=== PATIENT | female | born 1950 | race Caucasian/White ===

== ENCOUNTER 2023-06-25 13:59 | Outpatient (CLI) | payer MEDICARE, BC, SELFPAY ==
[2023-06-25 18:07] LABS: Basophils Percent Auto 0.7 % (0.2-1.2); Eosinophils Absolute Auto 0.1 K/mm3 (0-0.3); Eosinophils Percent Auto 1.6 % (0-4.4); Hematocrit 46.6 % (37.0-47.0); Hemoglobin 14.8 g/dL (12.0-15.0); Immature Granulocyte Absolute 0.02 K/mm3 (0.00-0.031); Immature Granulocyte Percent A 0.4 % (0-0.5); Lymphocytes Absolute Auto 1.19 K/mm3 (0.9-3.2); Lymphocytes Percent Auto 20.8 % (18.3-44.2); Mean Corpuscular HGB Conc 31.8 g/dl (32-36); Mean Corpuscular Hemoglobin 28.2 pg (26-34); Mean Corpuscular Volume 88.8 fl (80-100); Mean Platelet Volume 11.1 fl (7.4-10.4); Monocytes Absolute Auto 0.5 K/mm3 (0.1-0.6); Monocytes Percent Auto 8.4 % (2.6-8.5); Neutrophils Absolute Auto 3.9 K/mm3 (1.3-6.7); Neutrophils Percent Auto 68.1 % (45.5-73.1); Platelet Count Result 238 k/mm3 (150-375); Red Blood Count 5.25 M/mm3 (4.2-5.4); Red Cell Distribution Width 14.6 % (11.5-14.5); White Blood Count 5.7 K/mm3 (4.5-10.0)
[2023-06-25 18:29] LABS: Alanine Aminotransferase 21 U/L (6-35); Albumin Level 4.7 g/dL (3.5-5.1); Alkaline Phosphatase 76 U/L (38-126); Anion Gap 9 mmol/L (8-16); Aspartate Amino Transferase 30 U/L (14-36); Bilirubin,Total 0.7 mg/dL (0.2-1.3); Blood Urea Nitrogen 15 mg/dL (7-17); Calcium 9.3 mg/dL (8.4-10.2); Carbon Dioxide 26 mmol/L (22-30); Chloride 103 mmol/L (98-107); Cholesterol 323 mg/dL (0-200); Estimated Glomerular Filt Rate > 60; Glucose 89 mg/dL (65-110); HDL Direct 63 mg/dL; Potassium 4.6 mmol/L (3.4-5.0); Sodium 138 mmol/L (137-145); Triglycerides 180 mg/dL (<150)
[2023-06-25 18:33] LABS: LDL Cholesterol Direct 173 mg/dL
[2023-06-25 18:59] LABS: Vitamin D 25 Hydroxy 34.3 ng/mL
[2023-06-28 15:04] LABS: Mumps Virus IgG Antibody >300.00 AU/mL
[2023-06-28 18:29] LABS: Rubeola Measles IgG >300.00 AU/mL
[2023-07-13 15:46] LABS: Rubella IgG Antibody 30.2 IU/ML
== END 2023-06-25 14:00 | disposition home or self-care (01) ==
LOC: ANHGOSHLAB 14:11
PROVIDERS: PCP Family Medicine; Visit Provider Family Medicine
DX: Z00.00 Encounter for general adult medical examination without abnormal findings (principal); E66.9 Obesity, unspecified; Z68.33 Body mass index [BMI] 33.0-33.9, adult; E78.5 Hyperlipidemia, unspecified; Z78.9 Other specified health status; Z13.29 Encounter for screening for other suspected endocrine disorder; E53.8 Deficiency of other specified B group vitamins; E55.9 Vitamin D deficiency, unspecified
CPT/HCPCS: 36415; 80053; 80061; 82306; 82607; 84443; 85025; 86735; 86765

== ENCOUNTER 2023-11-26 16:31 | Emergency (ER) | payer MEDICARE, BC, SELFPAY ==
--- NOTE | ~2023-11-26 | XR_ITS ---
EXAMINATION: XR scapula RT DATE: 11/26/2023 17:51 INDICATION: Right scapular pain. Fall. TECHNIQUE: 3 views of right scapula were obtained. COMPARISON: None. FINDINGS: Bone alignment is normal. There is a comminuted fracture of the inferior angle of the scapu la. 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 Glenohumeral joint is not well profiled. IMPRESSION: 1. Comminuted fracture of the inferior angle of the scapula. Reviewed, dictated and finalized at location E. SPECIALIST
[2023-11-26 16:40] VITALS: BP 147/72; PULSE 71; RESP 20; TEMP 36.8; O2SAT 97
--- NOTE | 2023-11-26 17:21 | ED.UPPEXIN ---
HPI - Extremity Injury (Upper) General Chief Complaint: Extremity Injury, Upper Stated Complaint: glf Time Seen by Provider: 11/26/23 17:21 Source: patient Mode of arrival: ambulatory Limitations: no limitations History of Present Illness HPI narrative: MSE: 1720 Martha is a 73-year-old female patient presenting to the ER today for right shoulder pain after a ground level fall. She reports she is having right scapula pain. Is wearing a sling from home. Reports pain to the scapula with movement of the right arm. States when her arm is still she has no pain however when she moves her arm it is excruciating Related Data Allergies Allergy/AdvReac Type Severity Reaction Status Date / Time No Known Allergies Allergy Verified 06/26/23 10:55 Review of Systems Review of Systems: Pertinent positives per HPI. Patient denies any fever, chills, rash, headache, visual changes, dizziness, cough, runny nose, sore throat, shortness of breath, chest pain, palpitations, nausea, vomiting, diarrhea, constipation, abdominal pain, or any urinary issues. [facility] Past Medical History Medical History Anemia Dyslipidemia Obesity Screening mammogram, encounter for Seasonal allergies Surgical History Surgical History History of partial hysterectomy (~1988) Hx of tonsillectomy (~1954) Family History Family History Other Family history of coronary artery disease Social History Social History Smoking status: Never smoker Alcohol intake: never Substance use: never Substance use type: does not use Lack of Transportation: No Lack of Food: Never True Current Housing: I Have Housing Concerned About Future Housing: No Difficulty Paying Gas/Electric Bills: No Difficulty Paying for Meds: No Currently Unemployed: No Education: Master's Degree or Higher Difficulty w/ Childcare or Family Care: No Living arrangements: with family Additional living arrangements comments: Living with Occupation/Education: retired Gender identity (if verbalized by the patient): Female Sexual Orientation (if Verbalized by the Patient): Straight or Heterosexual Spiritual care concerns: No Agree to blood products: Yes Comments At the time of my signature, I reviewed and agree with the nursing past medical, surgical, social, and family history. There is no relevant family history pertinent to the patient complaint. Exam Narrative: General: Well-developed, well nourished, in no apparent distress Head: Normocephalic, atraumatic. Cardio: Regular rate and rhythm, s1 and s2 normal, no murmur appreciated. Resp: Clear to auscultation bilaterally, no rhonchi, rales, wheezing or rubs. Musculoskeletal: No deformity, tender to palpation over the right scapula/trapezius musculature, limited range of motion due to pain, muscle strength strong and equal, peripheral pulse strong, no edema, no cyanosis, normal gait and station Course Course Emergency Course: Portions of this record may have been created with voice recognition software. Vital Signs Vital signs: Vital Signs Temperature 36.8 C 11/26/23 16:40 Pulse Rate 71 11/26/23 16:40 Respiratory Rate 20 11/26/23 16:40 Blood Pressure 147/72 H 11/26/23 16:40 Pulse Oximetry 97 11/26/23 16:40 Oxygen Delivery Room Air 11/26/23 16:40 Temperature 36.8 C 11/26/23 16:40 Pulse Rate 71 11/26/23 16:40 Respiratory Rate 20 11/26/23 16:40 Blood Pressure 147/72 H 11/26/23 16:40 Pulse Oximetry 97 11/26/23 16:40 Oxygen Delivery Room Air 11/26/23 16:40 Vital signs reviewed MDM - Extremity Injury (Upper) MDM Narrative Medical decision making narrative: At the time of visit patient is resting comfortably on
--- NOTE | 2023-11-26 19:01 | PC.NURSE ---
Pt with right arm in sling. CMS intact.
[2023-11-26 19:02] VITALS: BP 134/78; PULSE 80; RESP 16; TEMP 36.7; O2SAT 98
== END 2023-11-26 19:05 | disposition home or self-care (01) ==
LOC: ANHED 18:59
PROVIDERS: Emergency Provider Nurse Practitioner Family; PCP Family Medicine
DX: S42.191A Fracture of other part of scapula, right shoulder, initial encounter for closed fracture (principal); Z86.2 Personal history of diseases of the blood and blood-forming organs and certain disorders involving the immune mechanism; E78.5 Hyperlipidemia, unspecified; E66.9 Obesity, unspecified; Z68.34 Body mass index [BMI] 34.0-34.9, adult; Z90.711 Acquired absence of uterus with remaining cervical stump; W18.30XA Fall on same level, unspecified, initial encounter
CPT/HCPCS: 73010; 99284